=== PATIENT | female | born 1945 | race Caucasian/White ===

== ENCOUNTER 2018-11-28 10:35 | Inpatient (IN) | payer BC, MEDICARE ==
[~2018-11-28 10:35] MED LIST: CEFAZOLIN 2 Gram 2 GM/50 ML BAG IVPB ONE; CELECOXIB 100 MG CAPSULE PO ONE; FAMOTIDINE 20MG TABLET PO ONE; MECLIZINE 25 MG TABLET PO ONE; METOCLOPRAMIDE 10 MG TABLET PO ONE; VANCOMYCIN 1GM/200ML PREMIX 1 GM/200 ML PIGGYBACK IVPB ONE
[2018-11-28 11:00] LABS: URINE APPEARANCE CLEAR; URINE BILIRUBIN SMALL (NEGATIVE); URINE BLOOD NEGATIVE (NEGATIVE); URINE GLUCOSE (UA) NEGATIVE (NEGATIVE); URINE KETONE NEGATIVE (NEGATIVE); URINE LEUKOCYTE ESTERASE TRACE (NEGATIVE); URINE NITRITE NEGATIVE (NEGATIVE); URINE PROTEIN NEGATIVE (NEGATIVE)
[2018-11-28 11:06] LABS: URINE COLOR DARK YELLOW
[2018-11-28 11:10] LABS: URINE BACTERIA 2+; URINE EPITHELIAL CELLS 36 - 50 (FEW); URINE MUCUS LIGHT; URINE RBC NONE SEEN (NONE SEEN); URINE YEAST FEW
[2018-11-28] MEDS ORDERED: RINGERS SOLUTION,LACTATED 1,000 ML IV ONE ×2 (11:30→12:45)
[2018-11-28 12:21] LABS: ABO GROUP A; RH TYPE NEGATIVE
[2018-11-28] MEDS ORDERED: BUPIVACAINE 0.5% W/EPI MPF 30 ML VIAL SQ ONE (12:53)
[2018-11-28] MEDS ORDERED: TRANEXAMIC ACID 1,000 MG/10 ML ML IV ONE (12:54)
[2018-11-28] MEDS ORDERED: TRANEXAMIC ACID 1,000 MG/10 ML ML IU ONE (12:54)
[2018-11-28] MEDS ORDERED: ROPIVACAINE HCL (NAROPIN) /PF 5MG/ML 20ML VIAL IV ONE (13:14)
[2018-11-28] MEDS ORDERED: DEXAMETHASONE 4 MG/ML 1ML VIAL IVP ONE (13:14)
[2018-11-28] MEDS ORDERED: 0.9 % SODIUM CHLORIDE 10 ML VIAL IVP ONE (13:14)
[2018-11-28] MEDS ORDERED: TRAMADOL HCL 50 MG TABLET PO PRN (13:33)
[2018-11-28] MEDS ORDERED: ACETAMINOPHEN W/ CODEINE 300MG/60MG TABLET PO PRN ×2 (13:33)
[2018-11-28] MEDS ORDERED: AL HYDROX/MAG HYDROX 30ML UD PO PRN (13:33)
[2018-11-28] MEDS ORDERED: HYDROCODONE/APAP 10/325 TABLET PO PRN (13:33)
[2018-11-28] MEDS ORDERED: ACETAMINOPHEN 325 MG TAB PO PRN (13:33)
[2018-11-28] MEDS ORDERED: ONDANSETRON HCL IV 4 MG/2 ML VIAL IVP PRN (13:33)
[2018-11-28] MEDS ORDERED: BISACODYL 10 MG SUPP RC PRN (13:33)
[2018-11-28] MEDS ORDERED: MAGNESIUM HYDROXIDE 30 ML UDC PO PRN (13:33)
[2018-11-28] MEDS ORDERED: ZOLPIDEM TARTRATE 5 MG TABLET PO PRN (13:33)
[2018-11-28] MEDS ORDERED: KETOROLAC 30 MG/ML VIAL IVP PRN (13:33)
[2018-11-28] MEDS ORDERED: NALOXONE 0.4 MG/1 ML VIAL IVP PRN (13:33)
[2018-11-28 14:03] LABS: ANTIBODY SCREEN NEGATIVE (NEGATIVE)
[2018-11-28] MEDS: POTASSIUM CHLORIDE/D5-0.9%NACL 20 MEQ/1,000 ML BAG IV SCH (14:51)
[2018-11-28] MEDS ORDERED: FLU VAC QS 2019-20 (INPT, 6MO+) 60MCG/0.5ML IM ONE (15:05)
[2018-11-28] MEDS ORDERED: LIDOCAINE 2% MDV (20MG/ML) 20ML VIAL IV ONE (15:05)
[2018-11-28] MEDS ORDERED: PROPOFOL 10 MG/ML VIAL IV ONE (15:05)
[2018-11-28] MEDS ORDERED: MIDAZOLAM HCL 2MG/2ML VIAL IV ONE (15:05)
[2018-11-28] MEDS: HYDROMORPHONE HCL 2 MG/ML VIAL IM PRN ×2 (17:11→23:54)
--- NOTE | 2018-11-28 17:14 | Rehab Evaluation ---
Patient Information - Patient Information Diagnosis: R Hip DJD Ordered Treatment: PT Evaluate and Treat Status: Initial Evaluation Surgery: Yes (R REYES) Date of Surgery: 11/28/18 Past Medical/Surgical Hx: PAST MEDICAL/SURGICAL HISTORY Past Surgical History LTHA RTKA KARSON LEFT OVARY APPY HANNA TONSILS LEFT PERC NEPHROLITHOTOMY EGD'S C SCOPES PMH - Respiratory Hx Respiratory Disorders Yes Hx Bronchitis Yes Hx Pneumonia Yes Hx of SOB Yes: WITH EXERTION PMH - Cardiovascular Hx Cardiovascular Disorders Yes Hx Hypertension Yes: ON MEDS WITH GOOD CONTROL Hx Irregular Heartbeat Yes: IN THE PAST W BLOOD LOSS Exercise Tolerance Fair 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 CAUSED BY BETA MITZY PMH - Hematology/Oncology Hx Hematology/Oncology Yes Disorders Hx Blood Transfusion Reaction No Premorbid Status: Detail (Patient was independent in ADLs prior to surgery.) Social History: Detail (Patient lives in a 1-story with her spouse. There are 2 steps to enter with no railing. In the bathroom there is a walk-in shower with a grab bar and hand-held shower head. There is a standard height toilet but the patient has a toilet seat riser available to her, and there are no grab bars by the toilet. She has a walker and cane available to her. Patient is retired and will be receiving home PT.) Precautions: [place], Fall, Other (WBAT on R LE) - Time With Patient Total Time Spent With Patient (Min): 30 Treatment Procedures: Detail (Initial Evaluation;low complexity. Patient was left in bed with her call light and bedside table within reach. The nursing staff was notified of her position.) Subjective Information - Subjective Information Per Patient (Patient stated that she had 5/10 pain in the R hip at the time of the evaluation.) Objective Data - Pain Pain Present: Yes Pain Scale Used: Numeric (1 - 10) (5/10) - Mental Status Patient Orientation: Oriented x3 - Visual Perception Appears within normal limits for therapeutic activities - ROM Not within normal limits (R hip ROM is limited as expected s/p REYES procedure. R knee and ankle and L LE ROM is within normal limits.) - Strength/Tone Not within normal limits (R hip strength is limited as expected s/p REYES procedure. R knee and ankle and L LE strength is within normal limits.) - Coordination Appears within normal limits for therapeutic activities - Bed Mobility Needs Assist (Patient required assistance of PT to move the R LE to the side of the bed. Patient required min assist of 1 to move herself up in bed.) - Transfers Needs Assist (Patient required assist of PT to move her R LE off the edge of the bed and back into bed. Patient was independent in transferring from sit to stand and stand to sit.) - Balance Balance Sitting: Good Balance Standing: Good - Sensation Intact - Gait Detail (Patient ambulated 100 feet WBAT on the R LE with a front-wheeled walker. Contact guard of 1 was needed during ambulation. Patient stated that she had increased pain with ambulation.) Therapy Assessment - Therapy Assessment Detail (Patient is a good candidate for inpatient physical therapy as she has decreased ROM and strength, gait abnormalities, and decreased endurance following REYES procedure. Patient will progress towards meeting goals to be able to be discharged from inpatient rehab.) Problem List - Problem List Physical Therapy Problem List: Detail (1. Decreased R hip ROM 2. Decreased R hip strength 3. Decreased ambulatory distance 4. Pain in R hip 5. Decreased ability to complete stair training) Goals - Goals Physical Therapy Goals: 1. Patient will be independent in HEP to increase strength and ROM of R hip to be able to complete ADLs. 2. Patient will be able to ambulate community distances with a front-wheeled walker to be able to walk in the community following discharge. 3. Patient will be complete stair training for 3 stairs to be able to get in and out of her home. 4. Patient will have good understanding and will be able to correctly recall REYES precautions. Prognosis - Prognosis Good Plan - Plan Physical Therapy Plan: Patient will be seen for 1-2 sessions. Plan will include gait training, stair training, therapeutic exercise, therapeutic activities, and HEP instruction.
[2018-11-28] MEDS: HYDROCODONE/APAP 10/325 TABLET PO PRN ×2 (18:31→22:31)
[2018-11-28] MEDS: CEFAZOLIN 2 Gram 2 GM/50 ML BAG IVPB SCH (20:06)
[2018-11-28] MEDS: DOCUSATE SODIUM 100 MG CAPSULE PO SCH (22:31)
[2018-11-29] MEDS: DIPHENHYDRAMINE HCL 25 MG CAPSULE PO PRN ×2 (00:01→05:46)
[2018-11-29] MEDS: POTASSIUM CHLORIDE/D5-0.9%NACL 20 MEQ/1,000 ML BAG IV SCH ×2 (00:05→09:38)
[2018-11-29] MEDS: CEFAZOLIN 2 Gram 2 GM/50 ML BAG IVPB SCH ×2 (04:24→12:13)
[2018-11-29] MEDS: HYDROCODONE/APAP 10/325 TABLET PO PRN ×3 (04:34→13:17)
[2018-11-29] MEDS: HYDROMORPHONE HCL 2 MG/ML VIAL IM PRN (05:45)
[2018-11-29 06:41] LABS: HEMATOCRIT 37.4 % (35.0-47.0); HEMOGLOBIN 11.8 gm/dl (11.6-16.0)
[2018-11-29 06:52] LABS: BLOOD UREA NITROGEN 12 mg/dL (8-23); CREATININE 0.9 mg/dL (0.5-0.9); EST GLOMERULAR FILTRATION RATE > 60 mL/min; GLUCOSE,RANDOM 117 mg/dL (74-109)
[2018-11-29] MEDS: DOCUSATE SODIUM 100 MG CAPSULE PO SCH (09:31)
[2018-11-29] MEDS ORDERED: BUSPIRONE 10 MG PO SCH (10:00)
[2018-11-29] MEDS ORDERED: LOSARTAN 50 MG PO SCH (10:00)
[2018-11-29] MEDS ORDERED: FERROUS SULFATE 325 MG TAB PO SCH (10:00)
[2018-11-29] MEDS ORDERED: VENLAFAXINE PO SCH (10:00)
[2018-11-29] MEDS ORDERED: PRAVASTATIN 20 MG PO SCH (10:00)
[2018-11-29] MEDS ORDERED: ASPIRIN 325 MG PO SCH (10:00)
[2018-11-29] MEDS ORDERED: PROPRANOLOL 80 MG PO SCH (10:00)
[2018-11-29] MEDS ORDERED: ESTRADIOL 1 MG PO SCH (10:00)
[2018-11-29] MEDS ORDERED: RIVAROXABAN 10 MG TABLET PO SCH (10:00)
--- NOTE | 2018-11-29 10:08 | Rehab Evaluation ---
Patient Information - Patient Information Diagnosis: R Hip DJD Ordered Treatment: OT Evaluate and Treat Status: Initial Evaluation Surgery: Yes (R REYES) Date of Surgery: 11/28/18 Past Medical/Surgical Hx: PAST MEDICAL/SURGICAL HISTORY Past Surgical History LTHA RTKA KARSON LEFT OVARY APPY HANNA TONSILS LEFT PERC NEPHROLITHOTOMY EGD'S C SCOPES PMH - Respiratory Hx Respiratory Disorders Yes Hx Bronchitis Yes Hx Pneumonia Yes Hx of SOB Yes: WITH EXERTION PMH - Cardiovascular Hx Cardiovascular Disorders Yes Hx Hypertension Yes: ON MEDS WITH GOOD CONTROL Hx Irregular Heartbeat Yes: IN THE PAST W BLOOD LOSS Exercise Tolerance Fair 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 CAUSED BY BETA MITZY PMH - Hematology/Oncology Hx Hematology/Oncology Yes Disorders Hx Blood Transfusion Reaction No Premorbid Status: Detail (Patient was independent in ADLs/IADLs including meal prep, laundry and home mgmt prior to surgery.) Social History: Detail (Patient lives in a 1-story with her spouse. There are 2 steps to enter with no railing. In the bathroom there is a walk-in shower with a grab bar and hand-held shower head. There is a standard height toilet but the patient has a toilet seat riser available to her, and there are no grab bars by the toilet. She has a walker and cane available to her. Patient is retired and will be receiving home PT.) Precautions: [place], Fall, Other (WBAT on R LE, total hip precautions) - Time With Patient Total Time Spent With Patient (Min): 40 Treatment Procedures: Detail (OT eval low complexity) Subjective Information - Subjective Information Per Patient Objective Data - Pain Pain Present: Yes (-09/13) - Mental Status Patient Orientation: Oriented x3 - Visual Perception Appears within normal limits for therapeutic activities - ROM Within normal limits ([place] UE AROM WNL) - Strength/Tone Within normal limits ([place] UE strength WNL) - Coordination Appears within normal limits for therapeutic activities - Transfers Independent (Ind with sit to stand from EOB) - Balance Balance Sitting: Good Balance Standing: Good - Sensation Intact - ADL's/IADL's Detail (Pt educated and able to demonstrate learning of modified LE dressing techniques using adaptive equipment while maintaining total hip precautions including donning pants, one sock and slip on shoes. Pt educated re: tennis shoes, kitchen and laundry modifications and safety, she was able to verbalize understanding and spouse will be available if needed.) Therapy Assessment - Therapy Assessment Detail (Pt is safe and Ind with modified LE dressing techniques while maintaining total hip precautions.) Problem List - Problem List Physical Therapy Problem List: Detail (1. Decreased R hip ROM 2. Decreased R hip strength 3. Decreased ambulatory distance 4. Pain in R hip 5. Decreased ability to complete stair training) Occupational Therapy Problem List: Detail (No current IP OT problems identified.) Goals - Goals Physical Therapy Goals: 1. Patient will be independent in HEP to increase strength and ROM of R hip to be able to complete ADLs. 2. Patient will be able to ambulate community distances with a front-wheeled walker to be able to walk in the community following discharge. 3. Patient will be complete stair training for 3 stairs to be able to get in and out of her home. 4. Patient will have good understanding and will be able to correctly recall REYES precautions. Occupational Therapy Goals: No current IP OT goals identified. Prognosis - Prognosis Good Plan - Plan Physical Therapy Plan: Patient will be seen for 1-2 sessions. Plan will include gait training, stair training, therapeutic exercise, therapeutic activities, and HEP instruction. Occupational Therapy Plan: No further IP OT recommended. Thank you for this referral.
--- NOTE | 2018-11-29 10:45 | Physical Therapy Tx Note ---
Physical Therapy Tx Note - Treatment Note Tolerated: Good Total Time Spent With Patient: 30 Physical Therapy Tx Note: Detail (Patient stated that she had some pain in the R hip this morning. She was able to ambulate 150 feet over smooth surfaces WBAT on the R LE independently. Patient completed stair training on 3 stairs and demonstrated correct technique with supervision. In bed, patient completed HEP and correctly demonstrated how to perform each exercise. Patient's precautions were reviewed with her as well as how to perform a car transfer. She has met all inpatient goals at this time. Patient was left in bed with her call light and bedside table within reach. The nursing staff was notified of her position.) Physical Therapy Problem List: Detail (1. Decreased R hip ROM 2. Decreased R hip strength 3. Decreased ambulatory distance 4. Pain in R hip 5. Decreased ability to complete stair training) Physical Therapy Goals: 1. Patient will be independent in HEP to increase strength and ROM of R hip to be able to complete ADLs. GOAL MET. 2. Patient will be able to ambulate community distances with a front-wheeled walker to be able to walk in the community following discharge. GOAL MET. 3. Patient will be complete stair training for 3 stairs to be able to get in and out of her home. GOAL MET. 4. Patient will have good understanding and will be able to correctly recall REYES precautions. GOAL MET Physical Therapy Plan: Patient has met all inpatient therapy goals at this time. She will continue to be seen for therapy with home health following discharge.
--- NOTE | 2018-11-29 14:50 | Operative Note ---
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 OPERATION: Cementless right total hip arthroplasty using Granda and Nephew components with a size 52 no-hole Reflection cup, 35-degree offset 32 mm diameter liner, a size 13 high-offset cementless [place] stem with a +0 32 mm diameter cobalt chrome head. STAFF SURGEON: Bishnu Monson MD ANESTHESIA: Spinal. PREPARATION: Chloraprep. INDIVIDUAL CONSIDERATIONS: None. PROCEDURE: The patient was taken to the operating room, placed supine on the operating room table. She had a successful induction of a spinal anesthetic. She was then placed on her side right side up, and her right leg and hip were prepped and draped in the usual fashion. The patient had direct posterior approach to the hip. Sharp dissection carried down through skin and subcutaneous tissues. Small veins were coagulated with a Bovie. The tensor gluteal fascia was opened along the entire length of the incision, and deep retractors were placed. Short external rotators were identified, piriformis fossa removed exposing the posterior capsule. Posterior capsulectomy was performed. Hip was dislocated posteriorly. She had profound arthrosis with bone loss and cysts. Femoral neck cut was then made about a fingerbreadth above the lesser troc with an oscillating saw. A rim capsulectomy was performed. Ligamentum was debrided out with a Bovie. Starting with a 45 mm reamer to ream just to the medial wall, I reamed to the introitus, a 51 for a size 52 cup. I slightly under-reamed to 50. After irrigation, I impacted a size 52 no-hole Reflection cup in 20 degrees of forward flexion and 40 degrees of abduction using the extraarticular alignment guide and bony landmarks. There was solid cementless fixation. I placed a center cap screw and then I impacted the 35-degree offset liner with the offset posteriorly and inferiorly. This gave an excellent stable acetabular construct, and this was packed off. The proximal femur was delivered into the wound, and box cutting osteotome was used to remove the proximal metaphyseal bone. Mid stem reaming was done to a size 13. I started feeling cortex between 11-12. I broached to a 13, dialed anteversion in between 20-25 degrees. Calcar reamed. There was solid cementless fixation with a broach with a +0 head high-offset trial. There was excellent stability. I removed the trial, irrigated out, and impacted a size 13 high- offset cementless [place] stem with solid cementless fixation, solid calcar contact. I irrigated and dried the Baltazar taper, impacted +0 32 mm diameter cobalt chrome head. I reduced the hip. Full anterior stability in extension and external rotation. I flexed her up actually to her pedunculus and internally rotated 90 degrees and we still had stability. The sciatic nerve was inspected and found to be completely intact. Hemostasis was obtained with a Bovie. After final irrigation, I mixed 1 g of tranexamic acid mixed with 30 mL of saline and placed this deep to the fascia. The fascia was then closed with a running #2 quill, subcu was closed in multiple layers with running 0 quill, skin was closed with maribel. The skin was also infiltrated with 30 mL of 0.5% Marcaine with epinephrine prior to closure. I then placed a sterile bulky compressive STACIA- type dressing. The patient tolerated the procedure well. Needle and sponge counts were correct. Estimated blood loss was about 150 mL. We will check a hemoglobin in the morning. There were no complications. [facility] HOSPITALJuliana
--- NOTE | 2018-11-30 14:00 | Discharge Summary ---
DATE OF ADMISSION: 11/28/2018 DATE OF DISCHARGE: 11/29/2018 DATE OF SURGERY: 11/28/2018 HISTORY: The patient is a delightful 73-year-old female who presents with end- stage arthrosis of her right hip. She was admitted after right total hip arthroplasty. Postoperatively she did well. Her discharge hemoglobin is 11.8 and now requires transfusion. The plan is to discharge her home in the care of her family. Home PT and visiting nurse has been arranged. She will be given [place] for pain and Xarelto followed by aspirin for DVT prophylaxis. Sutures will be removed by the visiting nurse in 2 weeks. She will follow up in my office in 4 weeks. FINAL DIAGNOSIS: End-stage arthrosis of the right hip. OPERATIONS AND PROCEDURES: Cementless right total hip arthroplasty. DISCHARGE CONDITION: Good. TREE
== END 2018-11-29 14:52 | disposition home health service (06) | DRG 470 ==
LOC: MEDSURG 10:35
PROVIDERS: ADMIT Orthopaedic Surgery; ATTEND Orthopaedic Surgery
PROC: 0SR906A Replacement of Right Hip Joint with Oxidized Zirconium on Polyethylene Synthetic Substitute, Uncemented, Open Approach (ICD-10-PCS; principal; 2018-11-28 13:00)
DX: M16.11 Unilateral primary osteoarthritis, right hip (principal); I10 Essential (primary) hypertension; E78.00 Pure hypercholesterolemia, unspecified; J44.9 Chronic obstructive pulmonary disease, unspecified; M54.31 Sciatica, right side
CPT/HCPCS: 80048; 81001; 82310; 85014; 85018; 86850; 86900; 86901; 90686; C1776; J1885; J2405; J3370; J3480; J7120